=== PATIENT | male | born 1980 | race Caucasian/White ===

== ENCOUNTER 2021-12-20 19:15 | Emergency (ER) | payer OTHER, SELFPAY ==
--- NOTE | 2021-12-20 19:36 | ED.GENADULT ---
HPI - General Adult General Chief complaint: Unspecified Stated complaint: Headache, high blood pressure Time Seen by Provider: 12/20/21 19:35 History of Present Illness HPI narrative: Holger Gonzalez is a41 yo male with a hx of bipolar disorder/mood disorder who comes to office with pressure elevation 169/112 he took at home. He has no diagnosis of hypertension and he has had a headache since Wednesday so that motivated to take his blood pressure. Talk to his mother he said he needed, and have it taken care of today. He is having no other symptoms other than headache since WednesdayRecently started Luvox in addition to the 2 bipolar medication that he takes which is Latuda and Lamictal Review of Systems Review of Systems: CONSTITUTIONAL: Denies fever, chills, sweats. Headache. Elevated blood pressure reading at home tonight EYES: Denies visual changes, redness, discharge. ENT: Denies rhinorrhea, congestion, sore throat, otalgia. CARDIOVASCULAR: Denies chest pain, palpitations, edema. RESPIRATORY: Denies dyspnea, wheezing, cough GASTROINTESTINAL: Denies abdominal pain, nausea, vomiting, diarrhea. GENITOURINARY: Denies dysuria, hematuria, abnormal discharge SKIN: Denies rash or itching. NEUROLOGIC: Denies numbness, or focal weakness. PSYCHIATRIC: Denies anxiety or depression. [facility] Past Medical History Medical History (Updated 12/20/21 @ 19:58 by Jennifer Malik CNP) Bipolar 1 disorder Social History Social History (Updated 12/20/21 @ 19:41 by Jennifer Malik CNP) Smoking status: Never smoker Alcohol intake: never Comments At time of signature, I agree with nursing past medical, surgical, social and family history. There is no relevant family history pertinent to the presenting complaint. Exam Narrative: GENERAL: This is a well-nourished, well-developed patient, in mild distress. HEAD: normocephalic, atraumatic. EYES: Sclera clear/white. Vision is grossly intact. EARS: External ears normal,. Hearing grossly intact. NOSE: External nose normal without nasal discharge, nares without redness, no rhinorrhea. THROAT: Mucous membranes moist, NECK: Neck supple, CARDIOVASCULAR: Regular rate and rhythm without murmurs, gallops, or rubs. RESPIRATORY: Clear to auscultation. Breath sounds equal bilaterally. No wheezes, rales, or rhonchi. GASTROINTESTINAL: Not done SKIN: warm, intact with no suspicious lesions or rash, good texture and turgor. NEURO: awake, alert, and oriented to person, place and time. There were no obvious focal neurologic abnormalities. Steady gait EXTREMITIES: Normal range of motion. BACK: Nontender without deformity Course Course Emergency Course: Patient came to [facility] because blood pressure at home was 169/112 he has not currently diagnosed with hypertension Manual blood pressure repeated here twice- BP 190/120 Transferred to [facility] for further evaluation Level of Care: Express Care Visit Medical Decision Making Differential Diagnosis Differential Diagnosis: Hypertensive crisis versus side effect of drug versus anxiety Critical Care Time Critical Care Time Critical Care Time: No Discharge Plan Discharge Clinical Impression: Hypertensive crisis Patient Disposition: Acute Care Hospital Condition: Stable Follow-up/Referrals: UNKNOWN,DOCTOR [Primary Care Provider] - Time of Disposition: 19:58
[2021-12-20 19:45] VITALS: BP 181/103; PULSE 64; RESP 18; TEMP 36.5; O2SAT 99
[2021-12-20 19:50] VITALS: BP 190/120
== END 2021-12-20 19:57 | disposition short-term general hospital (02) ==
PROVIDERS: Emergency Provider Nurse Practitioner
DX: I16.9 Hypertensive crisis, unspecified (principal)
CPT/HCPCS: 99202; G0463

== ENCOUNTER 2021-12-20 20:09 | Emergency (ER) | payer OTHER, SELFPAY ==
[2021-12-20] VITALS (13 sets, daily range): BP systolic 150–203; BP diastolic 94–113; PULSE 66–76; RESP 14–27; TEMP 36.7; O2SAT 94–100
--- NOTE | ~2021-12-20 | CT_ITS ---
EXAMINATION: CT BRAIN W/O DATE: 12/20/2021 20:46 INDICATION: Headache. Hypertension. TECHNIQUE: Computed tomography (CT) of the head was performed without intravenous contrast. The dose- length product was 605.33 mGy-cm. Automated exposure control and iterative reconstruction technique w ere employed. COMPARISON: No prior studies for comparison. FINDINGS: Normal brain parenchymal volume for age. Normal little-white differentiation. No acute intrac ranial hemorrhage, infarction, mass or mass effect. No ventriculomegaly or midline shift. Midline sagittal images demonstrate a normal corpus callosum, c raniovertebral junction and sella turcica. Basilar cisterns are patent. Paranasal sinuses and mastoids are pneumatized. No depressed skull fractures. IMPRESSION: 1. No acute intracranial abnormality. Reviewed, dictated and finalized at location A.
--- NOTE | 2021-12-20 20:33 | ECG_ITS ---
Measurements Intervals [place] Rate: 67 P: 39 FL: 164 QRS: -37 QRSD: 97 T: 38 QT: 391 QTc: 414 Interpretive Statements SINUS RHYTHM BASELINE ARTIFACT POSSIBLE LEFT ATRIAL ENLARGEMENT LEFT AXIS DEVIATION RSR' V1 BORDERLINE ECG NO PREVIOUS ECG AVAILABLE FOR COMPARISON Electronically Signed On 12-21-2021 14:34:10 CDT by Roel Swan M.D.
--- NOTE | 2021-12-20 20:38 | ED.RECABL ---
HPI - Recheck/Abnormal Lab/Rx General Chief Complaint: Recheck/Abnormal Lab/Rx Stated Complaint: High BP, HUTSON Time Seen by Provider: 12/20/21 20:33 Source: patient Mode of arrival: ambulatory Limitations: no limitations History of Present Illness HPI narrative: This is a 41 year old male that presents to the ER for elevated blood pressure. Reports he noted some headaches the last couple of weeks. Reports he took his blood pressure and it was elevated. He was sent from urgent care for further evaluation. No known history of hypertension. Does report he used to take Atenolol for anxiety and was taken off of this a couple months ago. Denies chest pain, shortness of breath or lower extremity edema. Related Data Allergies Allergy/AdvReac Type Severity Reaction Status Date / Time No Known Allergies Allergy Verified 12/20/21 20:24 Review of Systems Review of Systems: CONSTITUTIONAL: Denies fever EYES: Denies visual changes GASTROINTESTINAL: Denies vomiting NEUROLOGIC: Denies numbness, or weakness. All systems reviewed & are unremarkable except as noted in HPI and below PMFSH Past Medical History Medical History (Updated 12/20/21 @ 21:52 by Dagmar Matthews PA-C) Bipolar 1 disorder Social History Social History (Updated 12/20/21 @ 19:41 by Jennifer Malik CNP) Smoking status: Never smoker Alcohol intake: never Exam Narrative: GENERAL: Well-appearing, well-nourished, and in no acute distress. HEAD: Normocephalic, atraumatic. EYES: PERRLA and EOMI. ENT: Nares clear, no rhinorrhea or epistaxis. Mucous membranes moist. Oropharynx without tonsillar hypertrophy exudate or other lesions. Bilateral TMs pearly little non-bulging NECK: Supple. No adenopathy or masses. CHEST: Clear to auscultation. No respiratory distress. No wheezes rales or rhonchi HEART: Regular rate and rhythm. No murmur heard. Normal peripheral pulses. ABDOMEN: Soft, nontender, nondistended, normal active bowel sounds. EXTREMITIES: Normal range of motion. No edema. SKIN: Warm, dry, no rash. NEURO: No focal deficits. Alert and oriented x3. Cranial nerves II through XII grossly intact. Normal gait PSYCH: Normal mood and affect Course Consultations Consultation #1: Spoke with patient's primary on-call. Patient is continue to monitor blood pressure will be started on valsartan. He is to follow-up in clinic. Date: 12/20/21 Time: 21:54 Vital Signs Vital signs: Vital Signs Temperature 98.1 F 12/20/21 20:22 Pulse Rate 66 12/20/21 20:22 Respiratory Rate 18 12/20/21 20:22 Blood Pressure 160/94 H 12/20/21 20:22 Pulse Oximetry 100 12/20/21 20:22 Oxygen Delivery Room Air 12/20/21 20:22 Temperature 98.1 F 12/20/21 20:22 Pulse Rate 68 12/20/21 20:31 Respiratory Rate 18 12/20/21 20:31 Blood Pressure 150/102 H 12/20/21 21:45 Pulse Oximetry 100 12/20/21 20:31 Oxygen Delivery Room Air 12/20/21 20:22 MDM - Recheck/Abnormal Lab/Rx MDM Narrative Medical decision making narrative: Patient presents to the emergency department for elevated blood pressure associated with headaches. Blood pressure initially elevated to 200s systolic. This down trended without intervention. Most recent blood pressure 150/102. Patient is neurovascularly intact. CBC and metabolic panel without concerning findings. CT scan of the brain without acute abnormalities. Patient was updated on case findings. Spoke with patient's primary on-call. Patient is continue to monitor blood pressure will be started on valsartan. He is to follow-up in clinic. Patient is stable and felt appropriate for further outpatient evaluation. He was given warnings to return to the ER Lab Data Attestation: I reviewed the patient's lab results. Result diagrams: 12/20/21 20:54 12/20/21 20:54 Labs: Lab Results 12/20/21 12/20/21 Range/Units 20:54 20:54 WBC 6.6 (4.5-10.0) K/mm3 RBC 5.23 (4.6-6.20) M/mm3 Hgb 15.8 (14.0-
[2021-12-20 20:58] LABS: Basophils Percent Auto 0.5 % (0.2-1.2); Eosinophils Absolute Auto 0.2 K/mm3 (0-0.3); Eosinophils Percent Auto 2.9 % (0-4.4); Hematocrit 46.9 % (42.0-52.0); Hemoglobin 15.8 g/dL (14.0-18.0); Immature Granulocyte Absolute 0.02 K/mm3 (0.00-0.031); Immature Granulocyte Percent A 0.3 % (0-0.5); Lymphocytes Absolute Auto 1.99 K/mm3 (0.9-3.2); Lymphocytes Percent Auto 30.1 % (18.3-44.2); Mean Corpuscular HGB Conc 33.7 g/dl (32-36); Mean Corpuscular Hemoglobin 30.2 pg (26-34); Mean Corpuscular Volume 89.7 fl (80-100); Mean Platelet Volume 9.1 fl (7.4-10.4); Monocytes Absolute Auto 0.8 K/mm3 (0.1-0.6); Monocytes Percent Auto 11.6 % (2.6-8.5); Neutrophils Absolute Auto 3.6 K/mm3 (1.3-6.7); Neutrophils Percent Auto 54.6 % (45.5-73.1); Platelet Count Result 282 k/mm3 (150-375); Red Blood Count 5.23 M/mm3 (4.6-6.20); Red Cell Distribution Width 11.7 % (11.5-14.5); White Blood Count 6.6 K/mm3 (4.5-10.0)
[2021-12-20 21:10] LABS: Anion Gap 11 mmol/L (8-16); Blood Urea Nitrogen 16 mg/dL (9-20); Calcium 9.5 mg/dL (8.4-10.2); Carbon Dioxide 27 mmol/L (22-30); Chloride 104 mmol/L (98-107); Estimated CRCL calculation 87 ml/min; Estimated Glomerular Filt Rate > 60; Glucose 90 mg/dL (65-110); Potassium 4.1 mmol/L (3.4-5.0); Sodium 142 mmol/L (137-145)
[2021-12-20] MEDS: VALSARTAN 160 MG TABLET PO (22:31)
== END 2021-12-20 22:35 | disposition home or self-care (01) ==
PROVIDERS: Physician Assistant; Emergency Provider Emergency Medicine; PCP Student in an Organized Health Care Education/Training Program
DX: I10 Essential (primary) hypertension (principal); R94.31 Abnormal electrocardiogram [ECG] [EKG]
CPT/HCPCS: 36415; 70450; 80048; 85025; 93005; 99284; A9270

== ENCOUNTER 2022-05-05 15:04 | Emergency (ER) | payer OTHER, SELFPAY ==
[2022-05-05 15:56] VITALS: BP 136/83; PULSE 117; RESP 16; TEMP 38.6; O2SAT 98
--- NOTE | 2022-05-05 16:47 | ED.URI ---
HPI - URI/Sore Throat General Chief Complaint: Upper Respiratory Infection Stated Complaint: chest congestion Time Seen by Provider: 05/05/22 16:45 Source: patient and RN notes reviewed Mode of arrival: ambulatory Limitations: no limitations History of Present Illness HPI Narrative: 42-year-old male presented for complaint of cough and chest congestion worsening over the past 2 nights. He also endorses a fever. He denies shortness of breath or wheezing. He states the cough is productive, worse at night, causing him to choke on his phlegm. He endorses he tested positive for influenza 10 days ago, he had improvement until these symptoms began. He has taken Tylenol and ibuprofen for symptoms. Endorses approximately every other year he gets walking pneumonia around this time of year. MD elicited complaint: cough Related Data Home Medications Medication Instructions Recorded Confirmed dulaglutide 0.75 mg/0.5 mL 0.75 mg subcut DIRECTED 05/05/22 05/05/22 subcutaneous pen injector (Trulicity) lamotrigine 200 mg tablet 200 mg BID 05/05/22 05/05/22 lurasidone 60 mg tablet (Latuda) 60 mg DAILY 05/05/22 05/05/22 valsartan 160 mg tablet 160 mg PO DIRECTED 05/05/22 05/05/22 Allergies Allergy/AdvReac Type Severity Reaction Status Date / Time No Known Allergies Allergy Verified 05/05/22 16:15 Review of Systems Review of Systems: Per [facility] Past Medical History Medical History Bipolar 1 disorder Social History Social History Smoking status: Never smoker Alcohol intake: never Exam Narrative: GENERAL: Ill-appearing, nontoxic EYES: PERRLA, conjunctivae clear ENT: Mucous membranes moist. TMs pearly little with dull light reflex bilaterally; no tragal tenderness. Oropharynx erythematous without lesions or exudate, no drooling, no hoarseness, no trismus, uvula midline. CHEST: Right lower diminished with expiratory wheeze No respiratory distress, speaks in full sentences. HEART: Regular rate and rhythm. SKIN: Warm, dry, no rash. NEURO: Alert and oriented x3. PSYCH: Normal mood and affect Course Course Emergency Course: Patient is aware of diagnosis, understands and agrees to treatment plan. Anticipatory guidance given. Patient agrees to follow-up as directed and is aware of reasons to seek care at the emergency department. Portions of this record may have been created with voice recognition software Level of Care: Express Care Visit Vital Signs Vital signs: Vital Signs Temperature 101.5 F H 05/05/22 15:56 Pulse Rate 117 H 05/05/22 15:56 Respiratory Rate 16 05/05/22 15:56 Blood Pressure 136/83 05/05/22 15:56 Pulse Oximetry 98 05/05/22 15:56 Oxygen Delivery Room Air 05/05/22 15:56 Temperature 101.5 F H 05/05/22 15:56 Pulse Rate 117 H 05/05/22 15:56 Respiratory Rate 16 05/05/22 15:56 Blood Pressure 136/83 05/05/22 15:56 Pulse Oximetry 98 05/05/22 15:56 Oxygen Delivery Room Air 05/05/22 15:56 reviewed MDM - URI/Sore Throat MDM Narrative Medical decision making narrative: Advised supportive measures and signs/symptoms to go to the ER. Pt is appropriate for outpt treatment and f/u. Differential Diagnosis Differential diagnosis: Likely upper respiratory infection, sinusitis, viral infection and bronchitis Discharge Plan Discharge Clinical Impression: Cough Patient Disposition: Home, Self-Care Condition: Stable Instructions: Antibiotic Form, Pneumonia (ED) Additional Instructions: Avoid crowds until you do not have a fever and symptoms are improved Take medication as directed Recommend Flonase spray and Zyrtec (or Claritin/Dariana) if you have sinus congestion over the counter Cough syrup may cause drowsiness; avoid driving or take it at night time. Tylenol and motrin every 8 hours as needed for pain/fever Symptomatic juliet
== END 2022-05-05 16:58 | disposition home or self-care (01) ==
PROVIDERS: Emergency Provider Nurse Practitioner Family; PCP Student in an Organized Health Care Education/Training Program
DX: R05.9 Cough, unspecified (principal); F31.9 Bipolar disorder, unspecified
CPT/HCPCS: 99213; G0463

== ENCOUNTER 2024-05-05 16:50 | Emergency (ER) | payer BC, SELFPAY ==
[2024-05-05 17:00] VITALS: BP 109/72; PULSE 82; RESP 16; TEMP 36.7; O2SAT 100
--- NOTE | 2024-05-05 17:15 | ED_ITS ---
HPI - URI/Sore Throat General Chief Complaint: Upper Respiratory Infection Stated Complaint: Sore Throat Time Seen by Provider: 05/05/24 17:20 Source: patient Mode of arrival: ambulatory Limitations: no limitations History of Present Illness HPI Narrative: Ventura is a 44-year-old male patient presenting to the clinic today with complaints of sore throat times 2-3 days. He reports he has had strep exposure. He denies any fevers, chills, runny nose, body aches, or cough. MD elicited complaint: sore throat Related Data Home Medications ?Medication ?Instructions ?Recorded ?Confirmed ?Last Taken ?Type lamotrigine 200 mg tablet 200 mg PO BID 05/05/22 05/05/24 Unknown History gabapentin 100 mg capsule See Rx Instructions .Route .COMPLEX 05/05/24 05/05/24 Unknown History lithium carbonate 600 mg capsule 600 mg PO .qd 05/05/24 05/05/24 Unknown History tadalafil 2.5 mg tablet 2.5 mg PO .QD 05/05/24 05/05/24 Unknown History Allergies Allergy/AdvReac Type Severity Reaction Status Date / Time No Known Allergies Allergy Verified 05/05/24 17:09 Review of Systems Review of Systems: Pertinent positives per HPI. Patient denies any fever, chills, rash, headache, visual changes, dizziness, shortness of breath, chest pain, palpitations, nausea, vomiting, diarrhea, constipation, abdominal pain, or any urinary issues. PMFSH Past Medical History Medical History Bipolar 1 disorder Social History Social History Smoking status: Never smoker Alcohol intake: never Comments At the time of my signature, I reviewed and agree with the nursing past medical, surgical, social, and family history. There is no relevant family history pertinent to the patient complaint. Exam Narrative: General: Well-developed, well nourished, in no apparent distress Head: Normocephalic, atraumatic Eyes: Pupils equally round and reactive to light bilaterally, EOM intact, sclera and conjunctive clear, no discharge, lids normal Ears: TMs intact and clear, ear canals clear, no drainage, grossly hearing normal. Nose: Nares patent, no nasal discharge, no inflammation, no sinus tenderness. Mouth: Oral pharynx without lesions or masses, good dentition, MMM. Neck: Supple, trachea midline, no enlargement of anterior or posterior cervical nodes, no thyroid masses or goiter palpable. Cardio: Regular rate and rhythm, s1 and s2 normal, no murmur appreciated. Resp: Clear to auscultation bilaterally, no rhonchi, rales, wheezing or rubs Course Course Emergency Course: Portions of this record may have been created with voice recognition software. Level of Care: Express Care Visit Vital Signs Vital signs: Vital Signs Temperature 36.7 C 05/05/24 17:00 Pulse Rate 82 05/05/24 17:00 Respiratory Rate 16 05/05/24 17:00 Blood Pressure 109/72 05/05/24 17:00 Pulse Oximetry 100 05/05/24 17:00 Oxygen Delivery Room Air 05/05/24 17:00 Temperature 36.7 C 05/05/24 17:00 Pulse Rate 82 05/05/24 17:00 Respiratory Rate 16 05/05/24 17:00 Blood Pressure 109/72 05/05/24 17:00 Pulse Oximetry 100 05/05/24 17:00 Oxygen Delivery Room Air 05/05/24 17:00 Vital signs reviewed MDM - URI/Sore Throat MDM Narrative Medical decision making narrative: At the time of visit patient is resting comfortably on the exam table. Patient appears to be nontoxic. Labs: Strep test was negative in the clinic today. We will send strep for culture. Plan: I suspect patient has viral pharyngitis. Supportive measures were discussed with the patient and they voiced understanding discharge instructions and agrees to treatment plan. Return precautions reviewed Differential Diagnosis Differential diagnosis: Likely upper respiratory infection, otitis media, sinusitis, viral infection, bronchitis, influenza, pharyngitis and other (COVID) Lab Data Labs: Lab Results 05/05/24 Range/Units 17:10 POC Grp A Strep Screen Negative (Negative) Discharge Plan Discharge Clinical Impression: Pharyngitis Qualifiers: Pharyngitis/tonsillitis etiology: unspecified etiology Qualified Code(s): J02.9 - Acute pharyngitis, unspecified Patient Disposition: Home, Self-Care Condition: Stable Instructions: Antibiotic Form, Pharyngitis (ED) Additional Instructions: Strep test was obtained and negative in the clinic today. We will send strep for culture. Increase fluids and stay well hydrated Tylenol/motrin for pain/fever Flonase and OTC antihistamines as directed Vicks vapor rub to open sinuses Sinus rinses for congestion Cepacol spray, cough drops, throat lozenges, warm tea with honey/lemon, gargle salt water to soothe throat BRAT diet for diarrhea Clear liquids x 24 hours then advance as tolerated for nausea/vomiting Go to the ED if you develop a worsening in your condition- high fever not controlled by Tylenol or Motrin, dehydration, weakness, lethargy, shortness of breath, or chest pain. Follow up with your PCP in 3-5 days if symptoms persist. Patient Language: Lithuanian Prescriptions: No Action lamotrigine 200 mg tablet 200 mg PO BID tadalafil 2.5 mg tablet 2.5 mg PO .QD gabapentin 100 mg capsule See Rx Instructions .ROUTE .COMPLEX Rx Instructions: 1-3 caps po qhs; lithium carbonate 600 mg capsule 600 mg PO .qd Follow-up/Referrals: Courtney,DO Joey [Primary Care Provider] - Time of Disposition: 17:16 Quality NIHSS Nursing Documentation ED NIHSS nursing documentation: reviewed/agree
[2024-05-05 17:22] LABS: EDSTREPNEGPOS1 Negative (Negative)
== END 2024-05-05 17:22 | disposition home or self-care (01) ==
PROVIDERS: Emergency Provider Nurse Practitioner Family; PCP Student in an Organized Health Care Education/Training Program
DX: J02.9 Acute pharyngitis, unspecified (principal); Z79.899 Other long term (current) drug therapy
CPT/HCPCS: 87081; 87880; 99213; G0463